=== PATIENT | female | born 1945 | race Caucasian/White ===

== ENCOUNTER 2021-01-22 11:03 | Emergency (ER) | payer OTHER ==
[~2021-01-22] VITALS: Ht 157.5 cm; Wt 113.4 kg
[~2021-01-22 11:03] MED LIST: AMBEREN; ASA81BEC PO; CALCIUM; CELEXA 20 MG TA20 M1 PO; CELEXA 20 MG TA20 MG PO; COZAAR 25 MG TA25 MG PO; DETROL; DETROL LA4 MG PO; DIAPER RASH57 GM TP; FISH OIL 1,0001 EAC5 PO; FLEXERIL PO; HYDROCODON-ACE1 EAC7 PO; HYDROCODON-ACE1 EACH PO; KLONOPIN PO; LOPRESSOR PO; MOBIC15 MG PO; MORPHINE SULFAT15 M1; MS CONTIN15 MG PO; NITROGLYCERIN0.4 MG SUBLING; NOHOMEMEDICATIONS; NORCO 5-325 TA1 EACH PO; OSTEO BI-FLEX1 EAC1 PO; OSTEO BI-FLEX1 EAC3 PO; PROAIR HFA8.5 GM IH; SLEEPING PILL; SYMBICORT160 MCG/4. INH; SYMBICORT80 MCG/4.1 INH; TUMERIC PO; VICODIN; VITAMIN B-12100 MC1; VITAMIN B-12500 MCG PO; VITAMIN D-32000 UNIT PO; XANAX 0.25 MG0.25 MG PO; [UNRECOGNIZED DRUG - OTHER]
[2021-01-22] MEDS ORDERED: PERCOCET PO (11:35)
[2021-01-22 11:46] VITALS: BP 126/72
== END 2021-01-22 11:47 | disposition home or self-care (01) ==
LOC: M.ERS 11:03
DX: G89.29 Other chronic pain (principal); M25.562 Pain in left knee; J45.909 Unspecified asthma, uncomplicated; M19.90 Unspecified osteoarthritis, unspecified site; I10 Essential (primary) hypertension; E66.01 Morbid (severe) obesity due to excess calories; Z88.8 Allergy status to other drugs, medicaments and biological substances; Z79.899 Other long term (current) drug therapy

== ENCOUNTER 2021-01-26 12:51 | Emergency (ER) | payer OTHER ==
[~2021-01-26] VITALS: Ht 157.5 cm; Wt 138.8 kg
[~2021-01-26 12:51] MED LIST changes: +PERCOCET PO
[2021-01-26 14:10] VITALS: BP 125/79
== END 2021-01-26 14:10 | disposition home or self-care (01) ==
LOC: M.ERS 12:51
DX: G89.29 Other chronic pain (principal); M25.562 Pain in left knee; J45.909 Unspecified asthma, uncomplicated; M19.90 Unspecified osteoarthritis, unspecified site; I10 Essential (primary) hypertension; E66.01 Morbid (severe) obesity due to excess calories; Z68.43 Body mass index [BMI] 50.0-59.9, adult; Z88.8 Allergy status to other drugs, medicaments and biological substances

== ENCOUNTER 2021-02-01 12:42 | Emergency (ER) | payer OTHER ==
[~2021-02-01] VITALS: Ht 157.5 cm; Wt 137.0 kg
[2021-02-01 14:50] VITALS: BP 135/84
== END 2021-02-01 14:50 | disposition home or self-care (01) ==
LOC: M.ERS 12:42
DX: G89.29 Other chronic pain (principal); M25.562 Pain in left knee; M79.89 Other specified soft tissue disorders; M19.90 Unspecified osteoarthritis, unspecified site; J45.909 Unspecified asthma, uncomplicated; I10 Essential (primary) hypertension; E66.01 Morbid (severe) obesity due to excess calories; Z68.43 Body mass index [BMI] 50.0-59.9, adult; Z79.899 Other long term (current) drug therapy; Z79.82 Long term (current) use of aspirin; Z88.8 Allergy status to other drugs, medicaments and biological substances